=== PATIENT | male | born 1965 | race Caucasian/White ===

== ENCOUNTER 2016-12-01 09:14 | Emergency (ER) | payer OTHER ==
[2016-12-01 10:04] VITALS: BP 118/78
--- NOTE | 2016-12-01 10:20 | UC ---
Throat Pain/Nasal Lasha HPI - History of Current Complaint Chief Complaint: UCRespiratory Stated Complaint: THROAT Hx Obtained From: Patient Onset/Duration: Sudden Onset, Lasting Days - 2, Still Present Severity: Mild Cough: None Associated Signs & Symptoms: Positive: Dysphagia, Nasal Discharge - Epiglottits Risk Factors Epiglottis Risk Factors: Negative - Allergies/Home Medications Allergies/Adverse Reactions: Allergies Allergy/AdvReac Type Severity Reaction Status Date / Time Erythromycin Allergy Nausea And Verified 12/01/16 09:44 Vomiting seasonal Allergy Eyes Uncoded 12/01/16 09:44 Itchy/Swollen/Red/Watery PMH/Surg Hx/FS Hx/Imm Hx Respiratory History Of: Reports: Asthma - as child - Surgical History Surgical History: Yes Surgery Procedure, Year, and Place: B/l inguinal 2003~. hemmroidectomy - Family History Known Family History: Positive: Cardiac Disease, Hypertension - Social History Occupation: Employed Full-time Lives: With Family Alcohol Use: Rare Substance Use Type: None Smoking Status (MU): Never Smoked Tobacco Have You Smoked in the Last Year: No - Immunization History Most Recent Influenza Vaccination: not this season Review of Systems Constitutional: Chills, Fatigue ENT: Sore Throat, Nasal Discharge Neurological: Headache - along the temples All Other Systems Reviewed And Are Negative: Yes Physical Exam Triage Information Reviewed: Yes Appearance: No Pain Distress, Well-Nourished, Ill-Appearing Vital Signs: Initial Vital Signs Temp 98.4 F 12/01/16 09:45 Pulse 74 12/01/16 09:45 Resp 16 12/01/16 09:45 BP 118/78 12/01/16 09:45 Pulse Ox 98 12/01/16 09:45 Vital Signs Reviewed: Yes Eyes: Positive: Conjunctiva Clear ENT: Positive: Pharyngeal erythema, TMs normal Neck: Positive: Nontender, No Lymphadenopathy Respiratory: Positive: Lungs clear Cardiovascular Exam: Normal Musculoskeletal Exam: Normal Neurological Exam: Normal Psychological Exam: Normal Skin Exam: Normal Throat Pain/Nasal Course/Dx - Differential Dx/Diagnosis Differential Diagnosis/HQI/PQRI: Pharyngitis, Sinusitis, URI Provider Diagnoses: Acute URI. Acute Sinusitis Discharge - Discharge Plan Condition: Stable Disposition: HOME Prescriptions: Amoxicillin (*) 875 mg PO BID #20 tab Patient Education Materials: Upper Respiratory Infection (ED), Sinusitis (ED), Amoxicillin (By mouth)
== END 2016-12-01 10:50 | disposition home or self-care (01) ==
LOC: UCCORT 09:14
DX: J06.9 Acute upper respiratory infection, unspecified (principal); J01.90 Acute sinusitis, unspecified
CPT/HCPCS: 87651; 99212; G0463

== ENCOUNTER 2018-09-21 07:50 | Emergency (ER) | payer OTHER ==
[2018-09-21 08:02] VITALS: BP 133/75
--- NOTE | 2018-09-21 08:13 | UC ---
Respiratory Complaint HPI - HPI Summary HPI Summary: The patient is a 52-year-old male with a history of asthma who presents here with the onset of wheezing that occurred yesterday. The onset was while he was working on building a bookcase. He feels that the sawdust triggered his asthma attack. Currently out of his inhalers. He denies any chest pain or shortness of breath. He denies any nausea vomiting or diarrhea. He denies any upper respiratory symptoms. - History of Current Complaint Chief Complaint: UCRespiratory Stated Complaint: ASTHMA COMPLAINT Time Seen by Provider: 09/21/18 08:10 Hx Obtained From: Patient Onset/Duration: Gradual Onset, Lasting Hours Timing: Constant Severity Initially: Moderate Severity Currently: Mild Pain Intensity: 0 Pain Scale Used: 0-10 Numeric Character: Cough: Nonproductive Aggravating Factors: Allergens Alleviating Factors: Spontaneous Resolution Associated Signs And Symptoms: Positive: Wheezing - Allergies/Home Medications Allergies/Adverse Reactions: Allergies Allergy/AdvReac Type Severity Reaction Status Date / Time erythromycin base Allergy Nausea And Verified 09/21/18 08:03 Vomiting seasonal Allergy Eyes Uncoded 09/21/18 08:03 Itchy/Swollen/Red/Watery Home Medications: Home Medications Acetaminophen [Acetaminophen Extra Strength] 1,000 mg PO DAILY PRN 09/21/18 [ History Confirmed 09/21/18] Albuterol HFA INHALER* [Ventolin HFA Inhaler*] 2 puff INH Q6H PRN 09/21/18 [ History Confirmed 09/21/18] Bid Asthma Inhaler 09/21/18 [History] Ibuprofen TAB* [Motrin TAB* 600 MG] 600 mg PO DAILY PRN 09/21/18 [History Confirmed 09/21/18] PMH/Surg Hx/FS Hx/Imm Hx Previously Healthy: Yes Respiratory History: Asthma - Surgical History Surgical History: Yes Surgery Procedure, Year, and Place: B/l inguinal 2003~. Hemmroidectomy; 2nd on 06/29/18 at [facility] - Family History Known Family History: Positive: Cardiac Disease, Hypertension, Respiratory Disease - Social History Alcohol Use: Occasionally Substance Use Type: None Smoking Status (MU): Never Smoked Tobacco Have You Smoked in the Last Year: No - Immunization History Most Recent Influenza Vaccination: not this season Review of Systems All Other Systems Reviewed And Are Negative: Yes Constitutional: Positive: Negative Skin: Positive: Negative Eyes: Positive: Negative ENT: Positive: Negative Respiratory: Positive: Cough Cardiovascular: Positive: Negative Gastrointestinal: Positive: Negative Genitourinary: Positive: Negative Motor: Positive: Negative Neurovascular: Positive: Negative Musculoskeletal: Positive: Negative Neurological: Positive: Negative Psychological: Positive: Negative Is Patient Immunocompromised?: No Physical Exam Triage Information Reviewed: Yes Appearance: Well-Appearing Vital Signs: Initial Vital Signs Temp 97.7 F 09/21/18 07:57 Pulse 83 09/21/18 07:57 Resp 17 09/21/18 07:57 BP 133/75 09/21/18 07:57 Pulse Ox 99 09/21/18 07:57 Vital Signs Reviewed: Yes Eyes: Positive: Conjunctiva Clear ENT: Negative: Nasal congestion, Nasal drainage, Muffled voice, Hoarse voice Neck: Positive: Supple, Nontender, No Lymphadenopathy Respiratory: Positive: Normal breath sounds, No respiratory distress, Wheezing - scatterred Cardiovascular: Positive: RRR Musculoskeletal: Positive: ROM Intact, No Edema Neurological: Positive: Alert Psychological Exam: Normal Psychological: Positive: Decreased Age Appropriate Behavior UC Diagnostic Evaluation - Laboratory O2 Sat by Pulse Oximetry: 99 - normal/not hypoxic Respiratory Course/Dx - Differential Dx/Diagnosis Provider Diagnosis: Bronchospasm Discharge - Sign-Out/Discharge Documenting (check all that apply): Patient Departure All imaging exams completed and their final reports reviewed: No Studies - Discharge Plan Condition: Stable Disposition: HOME Prescriptions: Albuterol HFA INHALER* [Ventolin HFA Inhaler*] 2 puff INH QID #1 mdi Patient Education Materials: Bronchospasm (ED), How to Use a Metered-Dose Inhaler and a Spacer (ED) Referrals: Tam Zapien MD [Primary Care Provider] - If Needed Additional Instructions: she if your MD can call in your steroid inhaler - Billing Disposition and Condition Condition: STABLE Disposition: Home
== END 2018-09-21 08:32 | disposition home or self-care (01) ==
LOC: UCCORT 07:50
DX: J98.01 Acute bronchospasm (principal); Z88.1 Allergy status to other antibiotic agents
CPT/HCPCS: 99212; G0463

== ENCOUNTER 2018-10-10 09:03 | Emergency (ER) | payer OTHER ==
[2018-10-10 10:00] VITALS: BP 131/80
--- NOTE | 2018-10-10 10:20 | UC ---
Respiratory Complaint HPI - HPI Summary HPI Summary: cough x 1 day cough is dry / harsh , no sore throat, no nasal congestion, no pnd + body aches his was just diagnosed with Flu - History of Current Complaint Chief Complaint: UCRespiratory Stated Complaint: COUGH Time Seen by Provider: 10/10/18 09:49 Hx Obtained From: Patient Onset/Duration: Gradual Onset, Lasting Days - 1, Still Present Severity Initially: Moderate Severity Currently: Moderate Pain Intensity: 0 Character: Cough: Nonproductive Aggravating Factors: Exertion, Deep Breaths Alleviating Factors: Nothing Associated Signs And Symptoms: Negative: Dyspnea, Fever, Chills, Pleuritic Chest Pain, Wheezing, Hemoptysis, Dizziness, URI, Nasal Congestion - Allergies/Home Medications Allergies/Adverse Reactions: Allergies Allergy/AdvReac Type Severity Reaction Status Date / Time erythromycin base Allergy Nausea And Verified 10/10/18 09:49 Vomiting seasonal Allergy Eyes Uncoded 10/10/18 09:49 Itchy/Swollen/Red/Watery PMH/Surg Hx/FS Hx/Imm Hx Respiratory History: Asthma - Surgical History Surgical History: Yes Surgery Procedure, Year, and Place: B/l inguinal 2003~. Hemmroidectomy; 2nd on 06/29/18 at [facility] - Family History Known Family History: Positive: Cardiac Disease, Hypertension, Respiratory Disease - Social History Alcohol Use: Occasionally Substance Use Type: None Smoking Status (MU): Never Smoked Tobacco Have You Smoked in the Last Year: No - Immunization History Most Recent Influenza Vaccination: not this season Review of Systems All Other Systems Reviewed And Are Negative: Yes Constitutional: Positive: Negative Skin: Positive: Negative Eyes: Positive: Negative ENT: Positive: Negative Respiratory: Positive: Cough Cardiovascular: Positive: Negative Gastrointestinal: Positive: Negative Is Patient Immunocompromised?: No Physical Exam Triage Information Reviewed: Yes Appearance: Well-Appearing, No Pain Distress, Well-Nourished Vital Signs: Initial Vital Signs Temp 98.5 F 10/10/18 09:52 Pulse 103 10/10/18 09:52 Resp 20 10/10/18 09:52 BP 131/80 10/10/18 09:52 Pulse Ox 97 10/10/18 09:52 Vital Signs Reviewed: Yes Eye Exam: Normal Eyes: Positive: Conjunctiva Clear ENT: Positive: Normal ENT inspection, Hearing grossly normal, Pharynx normal, TMs normal. Negative: Pharyngeal erythema, Nasal congestion, Nasal drainage, TM bulging, TM dull, TM red, Tonsillar swelling, Tonsillar exudate Neck: Positive: Supple, Nontender, No Lymphadenopathy Respiratory: Positive: Chest non-tender, Lungs clear, Normal breath sounds Cardiovascular: Positive: RRR, No Murmur, Pulses Normal Skin Exam: Normal UC Diagnostic Evaluation - Laboratory O2 Sat by Pulse Oximetry: 97 Respiratory Course/Dx - Differential Dx/Diagnosis Provider Diagnosis: Influenza A Discharge - Sign-Out/Discharge Documenting (check all that apply): Patient Departure All imaging exams completed and their final reports reviewed: No Studies - Discharge Plan Condition: Stable Disposition: HOME Prescriptions: Oseltamivir CAP* [Tamiflu CAP*] 75 mg PO BID #10 cap Patient Education Materials: Influenza (ED) Referrals: Tam Zapien MD [Primary Care Provider] - If Needed - Billing Disposition and Condition Condition: STABLE Disposition: Home
== END 2018-10-10 10:38 | disposition home or self-care (01) ==
LOC: UCCORT 09:03
DX: J09.X2 Influenza due to identified novel influenza A virus with other respiratory manifestations (principal); Z88.1 Allergy status to other antibiotic agents
CPT/HCPCS: 99212; G0463

== ENCOUNTER 2018-11-05 20:14 | Emergency (ER) | payer OTHER ==
[2018-11-05 20:27] VITALS: BP 129/80
--- NOTE | 2018-11-05 20:42 | UC ---
Lower Extremity/Ankle HPI - HPI Summary HPI Summary: 52-year-old male here with chief complaint of injury to the right fifth toe. This morning before he had a shoes on he struck the toe on a chair. Had pain right away. He put his shoes on work all day. Pain continued through the day. Atenolol work today when he took off his shoes is right fifth toe is ecchymotic and swollen. Tender to palpation and with weightbearing. Pain is decreased when he is not weightbearing. No skin break. - History of Current Complaint Chief Complaint: UCLowerExtremity Stated Complaint: RT FOOT COMPLAINT Time Seen by Provider: 11/05/18 20:33 Pain Intensity: 4 - Allergies/Home Medications Allergies/Adverse Reactions: Allergies Allergy/AdvReac Type Severity Reaction Status Date / Time erythromycin base Allergy Nausea And Verified 11/05/18 20:24 Vomiting seasonal Allergy Eyes Uncoded 11/05/18 20:24 Itchy/Swollen/Red/Watery Home Medications: Home Medications NK [No Home Medications Reported] 11/05/18 [History Confirmed 11/05/18] PMH/Surg Hx/FS Hx/Imm Hx Previously Healthy: Yes - Surgical History Surgical History: Yes Surgery Procedure, Year, and Place: B/l inguinal 2003~. Hemmroidectomy; 2nd on 06/29/18 at [facility] - Family History Known Family History: Positive: Cardiac Disease, Hypertension, Respiratory Disease - Social History Alcohol Use: Occasionally Substance Use Type: None Smoking Status (MU): Never Smoked Tobacco Have You Smoked in the Last Year: No - Immunization History Most Recent Influenza Vaccination: not this season Review of Systems All Other Systems Reviewed And Are Negative: Yes Constitutional: Positive: Negative Skin: Positive: Bruising Eyes: Positive: Negative ENT: Positive: Negative Respiratory: Positive: Negative Cardiovascular: Positive: Negative Gastrointestinal: Positive: Negative Motor: Positive: Negative Neurovascular: Positive: Negative Musculoskeletal: Positive: Other: - Patient's fifth toe is ecchymotic and swollen. No skin break. Is tender to palpation. The rest of the foot is nontender to palpation ankle is nontender. Normal capillary refill. No sensation deficit. Neurological: Positive: Negative Psychological: Positive: Negative Is Patient Immunocompromised?: No Physical Exam Triage Information Reviewed: Yes Appearance: Well-Appearing, No Pain Distress, Well-Nourished Vital Signs: Initial Vital Signs Temp 98.4 F 11/05/18 20:25 Pulse 93 11/05/18 20:25 Resp 18 11/05/18 20:25 BP 129/80 11/05/18 20:25 Pulse Ox 98 11/05/18 20:25 Vital Signs Reviewed: Yes Eye Exam: Normal Eyes: Positive: Conjunctiva Clear Neck exam: Normal Neck: Positive: Supple Respiratory: Positive: No respiratory distress Musculoskeletal: Positive: Other: - Patient's fifth toe is ecchymotic and swollen. No skin break. Is tender to palpation. The rest of the foot is nontender to palpation ankle is nontender. Normal capillary refill. No sensation deficit. Neurological Exam: Normal Neurological: Positive: Alert Psychological Exam: Normal Psychological: Positive: Normal Response To Family, Age Appropriate Behavior Skin Exam: Normal Lower Extremity Course/Dx - Course Course Of Treatment: I discussed the x-rays with the patient. I do not see an obvious fracture radiologist reading is pending. I kei taped the fourth and fifth toes together and he was neurovascularly intact after the kei taping. Plan is rest eyes anti-inflammatories. If the radiologist sees a fracture the patient will follow-up with orthopedics. - Differential Dx/Diagnosis Provider Diagnosis: Contusion of fifth toe, right Discharge - Sign-Out/Discharge Documenting (check all that apply): Patient Departure All imaging exams completed and their final reports reviewed: No - Discharge Plan Condition: Stable Disposition: HOME Patient Education Materials: Foot Contusion (ED) Referrals: Tam Zapien MD [Primary Care Provider] - Parker Haq MD [Medical Doctor] - Additional Instructions: FOLLOW UP WITH DR HAQ, ORTHOPEDICS, IF NOT COMPLETELY IMPROVED. FINAL RADIOLOGIST READING WILL HAPPEN TOMORROW, 11/06/18. IF HE SEES A FRACTURE, WE WILL CALL YOU AND YOU WILL THEN NEED TO FOLLOW UP WITH ORTHOPEDICS. GET RECHECKED SOONER WITH ANY WORSENING OF YOUR CONDITION OR QUESTIONS OR CONCERNS. - Billing Disposition and Condition Condition: STABLE Disposition: Home
--- NOTE | 2018-11-06 08:21 | ED ---
Progress - Progress Note Progress Note: XRAY: non displaced mid diaphysis fx proximal phalynx 5th toe. Call Patient as in Dr Barrios plan and have them follow up with orthopedics. He already kei taped the toe. Have patient come here to pick and shovel man a post op shoe. Course/Dx - Course Course Of Treatment: I discussed the x-rays with the patient. I do not see an obvious fracture radiologist reading is pending. I kei taped the fourth and fifth toes together and he was neurovascularly intact after the kei taping. Plan is rest eyes anti-inflammatories. If the radiologist sees a fracture the patient will follow-up with orthopedics. - Diagnoses Provider Diagnoses: Contusion of fifth toe, right Discharge - Sign-Out/Discharge Documenting (check all that apply): Patient Departure All imaging exams completed and their final reports reviewed: Yes - Discharge Plan Condition: Stable Disposition: HOME Patient Education Materials: Foot Contusion (ED) Referrals: Parker Haq MD [Medical Doctor] - Tam Zapien MD [Primary Care Provider] - Additional Instructions: FOLLOW UP WITH DR HAQ, ORTHOPEDICS, IF NOT COMPLETELY IMPROVED. FINAL RADIOLOGIST READING WILL HAPPEN TOMORROW, 11/06/18. IF HE SEES A FRACTURE, WE WILL CALL YOU AND YOU WILL THEN NEED TO FOLLOW UP WITH ORTHOPEDICS. GET RECHECKED SOONER WITH ANY WORSENING OF YOUR CONDITION OR QUESTIONS OR CONCERNS. - Billing Disposition and Condition Condition: STABLE Disposition: Home
== END 2018-11-05 21:20 | disposition home or self-care (01) ==
LOC: UCCORT 20:14
DX: S90.121A Contusion of right lesser toe(s) without damage to nail, initial encounter (principal); S92.514A Nondisplaced fracture of proximal phalanx of right lesser toe(s), initial encounter for closed fracture; W22.03XA Walked into furniture, initial encounter; Y92.9 Unspecified place or not applicable; Z88.1 Allergy status to other antibiotic agents
CPT/HCPCS: 99211; G0463